=== PATIENT | female | born 1970 ===

== ENCOUNTER 2018-05-07 06:50 | Emergency (ER) | payer MEDICARE, MEDICAID ==
[2018-05-07 06:50] VITALS: BMI 34.9
[2018-05-07 06:57] VITALS: RESP 16
[2018-05-07] MEDS ORDERED: Sodium Chloride 0.9% 1,000 ML IV STA (07:39)
[2018-05-07] MEDS ORDERED: PROPARACAINE/FLUORESCEIN SOD 100 DROP/5 ML BOTTLE OS STA (08:01)
[2018-05-07 08:03] LABS: BASO # 0.1 K/uL (0.0-0.2); BASO % 0.6 % (0.0-2.0); EOS # 0.1 K/uL (0.0-0.7); EOS % 0.9 % (0.0-4.0); HEMOGLOBIN 14.3 g/dL (12.0-16.0); LYMPH # 1.8 K/uL (1.0-4.3); LYMPH % 19.2 % (20.0-40.0); MEAN CELL VOLUME 86.3 fl (81.0-99.0); MEAN CORPUSCULAR HEMOGLOBIN 28.9 pg (27.0-31.0); MEAN CORPUSCULAR HGB CONC 33.5 g/dL (33.0-37.0); MEAN PLATELET VOLUME 11.3 fl (7.2-11.7); MONO # 0.5 K/uL (0.0-0.8); NEUT % 74.3 % (50.0-75.0); RBC 4.96 Mil/uL (3.80-5.20); WHITE BLOOD COUNT 9.5 K/uL (4.8-10.8)
[2018-05-07] MEDS ORDERED: Fluorescein 1 mg Ophthalmic Strip ONE (08:12)
--- NOTE | 2018-05-07 08:18 | ED PDOC ---
HPI: Headache Time Seen by Provider: 05/07/18 07:02 Chief Complaint (Nursing): Headache Chief Complaint (Provider): Headache History Per: Patient History/Exam Limitations: no limitations Onset/Duration Of Symptoms: Days Current Symptoms Are (Timing): Still Present Associated Symptoms: denies: Nausea, Vomiting Additional Complaint(s): 47 year old female with a past medical history of diabetes, asthma, and arthritis who is presenting to the ED for evaluation of an intermittent headache ongoing for 1-2 weeks. Patient states that she had a scleral buckle of left eye operated on by a retina specialist who placed silicone in her eye two weeks ago. She admits that she has had a headache on and off since the surgery. Patient reports that she followed up with Dr. Matias Hermosillo yesterday who didnt find any explanation for headache from the standpoint of the eye. She states that her eye pressure was in the mid-20s and she admits that she is using eye drops including one that dilates her pupils. Patient states that Dr. Alexander recommended she visit the ED so she presented to [facility] where the doctor ordered a CT scan and gave her Morphine and muscle relaxer. The cause of the headache was determined to be a muscular cause and she was discharged with a prescription for Naproxen and Flexeril. She admits that she has not yet filled the prescriptions as she just left [facility] not too long ago and is presented to this Ed for evaluation of headache. Patient denies any fever, neck pain, neck stiffness, nausea, or vomiting. Of note, patient is on an insulin pump for diabetes. PMD: Dr. Russell Montgomery Past Medical History Reviewed: Historical Data, Nursing Documentation, Vital Signs Vital Signs: Last Vital Signs Temp 98.6 F 05/07/18 06:51 Pulse 104 H 05/07/18 06:51 Resp 16 05/07/18 06:51 BP 145/93 H 05/07/18 06:51 Pulse Ox 96 05/07/18 06:51 - Medical History PMH: Anemia, Arthritis, Asthma, Diabetes, Hypercholesterolemia - Surgical History Surgical History: Cholecystectomy, - Family History Family History: States: Unknown Family Hx - Social History Current smoker - smoking cessation education provided: No Alcohol: Social Drugs: Denies - Immunization History Hx Tetanus Toxoid Vaccination: No Hx Influenza Vaccination: No Hx Pneumococcal Vaccination: No - Home Medications Home Medications: Ambulatory Orders Medication Instructions Recorded Famotidine [Pepcid] 40 mg PO DAILY 02/05/17 Levocetirizine Dihydrochloride 5 mg PO DAILY 02/05/17 Lisinopril [Zestril] 2.5 mg PO DAILY 02/05/17 Montelukast Sodium [Singulair] 10 mg PO DAILY 02/05/17 Omeprazole 40 mg PO DAILY 02/05/17 Insulin Aspart, Recombinant 10 unit SC PRN PRN 07/07/17 [Novolog] Insulin Aspart, Recombinant 20 unit SC TID 07/07/17 [Novolog] Insulin Glargine,Hum.rec.anlog 20 unit SQ HS 07/07/17 [Lantus] - Allergies Allergies/Adverse Reactions: Allergies Allergy/AdvReac Type Severity Reaction Status Date / Time Penicillins Allergy Verified 07/07/17 09:48 vancomycin Allergy Verified 07/07/17 09:48 Review of Systems ROS Statement: Except As Marked, All Systems Reviewed And Found Negative Constitutional: Negative for: Fever Gastrointestinal: Negative for: Nausea, Vomiting Musculoskeletal: Negative for: Neck Pain, Other (neck stiffness) Neurological: Positive for: Headache Physical Exam - Reviewed Nursing Documentation Reviewed: Yes Vital Signs Reviewed: Yes - Physical Exam Appears: Positive for: Non-toxic, No Acute Distress Head Exam: Positive for: ATRAUMATIC (but (+) Palpable tenderness to scalene muscles of left side occipital area), NORMAL INSPECTION, NORMOCEPHALIC Skin: Positive for: Normal Color, Warm, DRY Eye Exam: Positive for: EOMI (bilaterally ), PERRL (right ), Conjunctival injection (right eye ), Other (left eyelid mildly erythematous and mildly indurated, pupil dilated and non-reactive, pupil not clearly round: irregularity ) Neck: Positive for: Normal, Painless ROM, Supple Cardiovascular/Chest: Positive for: Regular Rate, Rhythm. Negative for: Murmur Respiratory: Positive for: Normal Breath Sounds. Negative for: Respiratory Distress Gastrointestinal/Abdominal: Positive for: Normal Exam, Soft. Negative for: Tenderness Extremity: Positive for: Normal ROM. Negative for: Deformity, Swelling Neurologic/Psych: Positive for: Alert, Oriented. Negative for: Motor/Sensory Deficits - Laboratory Results Result Diagrams: 05/07/18 07:40 05/07/18 07:40 - ECG O2 Sat by Pulse Oximetry: 96 (RA) Pulse Ox Interpretation: Normal Medical Decision Making Medical Decision Making: Time: 7:38 Impression: headache Plan: --CMP --CBC --Erythrocyte Sedimentation rate --Flucaine Eye Drops --IV Fluids --Toradol 30 mg IVP --Valium 5 mg PO 8:[address] Hermosillo who states he checked eye pressure and it was in the 20s. He doesnt think pain is eye origin and states that provider here should check eye pressure to be thorough. He also recommends giving her some Toradol instead of narcotics and states to call back if eye pressure is greater than 30. 8:26 Fluorescein exam left eye: small area of focal uptake on medical aspect 1 mm in diameter, with generally inflamed looking conjunctiva. Eye pressure repeated 3 times with these results: 32, 33, 35. Scribe Attestation: Documented by Devi Mejia, acting as a scribe for Fariba Soto MD. Provider Scribe Attestation: All medical record entries made by the Scribe were at my direction and personally dictated by me. I have reviewed the chart and agree that the record accurately reflects my personal performance of the history, physical exam, medical decision making, and the department course for this patient. I have also personally directed, reviewed, and agree with the discharge instructions and disposition. 10.00a - case d/w Dr. Hermosillo again regarding her IOP's. His office will contact her for followup in 2 days. Patient made aware of this and that since Toradol helped that she should fill the prescription for Naprosyn and Flexeril given to her by the ER at [place]. Disposition - Clinical Impression Clinical Impression: Headache - Patient ED Disposition Is Patient to be Admitted: No Doctor Will See Patient In The: Office Counseled Patient/Family Regarding: Diagnosis, Need For Followup - Disposition Referrals: Froy Hermosillo MD [Medical Doctor] - Disposition: Routine/Home Disposition Time: 10:00 Condition: IMPROVED Instructions: Headache, Adult (DC) Forms: [facility] (Ukrainian) - POA Present On Arrival: None
[2018-05-07 08:49] LABS: ALB/GLOB RATIO 1.2 (1.0-2.1); ALBUMIN 3.6 g/dL (3.5-5.0); ALT/SGPT 25 U/L (9-52); AST/SGOT 15 U/L (14-36); BLOOD UREA NITROGEN 13 mg/dl (7-17); CALCIUM 8.6 mg/dL (8.4-10.2); GFR NON-AFRICAN AMERICAN > 60
[2018-05-07] MEDS ORDERED: Insulin Regular 100 units/ml SC STA (09:18)
[2018-05-07] MEDS ORDERED: Insulin Regular 100 units/ml ONE (10:22)
[2018-05-07 11:10] VITALS: BP 136/87; PULSE 72; TEMP 98; O2SAT 99
== END 2018-05-07 10:50 | disposition home or self-care (01) ==
LOC: H.ER 06:50
DX: R51 Headache (principal); E11.9 Type 2 diabetes mellitus without complications; E78.00 Pure hypercholesterolemia, unspecified; Z79.4 Long term (current) use of insulin; Z88.0 Allergy status to penicillin
CPT/HCPCS: 80053; 85025; 85651; 96361; 96374; 99285; J1885; J7030